=== PATIENT | female | born 1955 | race Caucasian/White ===

== ENCOUNTER → 2020-08-28 10:55 | Outpatient (CLI) | payer MEDICARE, BC, SELFPAY ==
[2020-08-28] MEDS: COVID-19 VACC #1, MRNA(MOD) 100 MCG/0.5 ML VIAL IM (11:04)
== END ==
PROVIDERS: Visit Provider Internal Medicine
DX: Z23 Encounter for immunization (principal)
CPT/HCPCS: 0011A; 91301

== ENCOUNTER → 2020-09-25 12:07 | Outpatient (CLI) | payer MEDICARE, BC, SELFPAY ==
[2020-09-25] MEDS: COVID-19 VACC #2, MRNA(MOD) 100 MCG/0.5 ML VIAL IM (12:16)
== END ==
PROVIDERS: Visit Provider Internal Medicine
DX: Z23 Encounter for immunization (principal)
CPT/HCPCS: 0012A; 91301

== ENCOUNTER → 2020-11-26 15:52 | Outpatient (CLI) | payer MEDICARE, BC, SELFPAY ==
--- NOTE | 2020-11-26 15:57 | DI.MG.S_ITS ---
BILATERAL DIGITAL SCREENING MAMMOGRAM 3D/2D WITH CAD: 11/26/2020 CLINICAL: Routine screening. Comparison is made to exams dated: 07/18/2017 mammogram, 04/13/2016 mammogram, 01/23/2015 mammogram, and 01/12/2015 mammogram - outside location. The tissue of both breasts is predominantly fatty. Current study was also evaluated with a Computer Aided Detection (CAD) system. No significant masses, calcifications, or other findings are seen in either breast. There has been no significant interval change. IMPRESSION: NEGATIVE There is no mammographic evidence of malignancy. A 1 year screening mammogram is recommended. This exam was interpreted at Station ID: [id number]. NOTE: For mammograms, a report in lay terms will be sent to the patient. Approximately 15% of breast malignancies will not be visualized mammographically. In the management of a palpable breast mass, a negative mammogram must not discourage biopsy of a clinically suspicious lesion. Electronically Signed By: Robert Arora M.D., jr/anay:11/26/2020 16:27:57 letter sent: Normal Exam ACR BI-RADS Category 1: Negative 3341F
== END ==
PROVIDERS: PCP Internal Medicine; Referring Provider Internal Medicine; Visit Provider Internal Medicine
DX: Z12.31 Encounter for screening mammogram for malignant neoplasm of breast (principal)
CPT/HCPCS: 77063; 77067

== ENCOUNTER → 2020-12-30 15:37 | Outpatient (CLI) | payer MEDICARE, BC, SELFPAY ==
--- NOTE | 2020-12-30 | DI.RAD.S_ITS ---
PROCEDURE: XR HIP W PEL IF DONE LT 2V INDICATIONS: LEFT HIP PAIN TECHNIQUE: AP pelvis with lateral view(s) of the left hip(s). COMPARISON: None. FINDINGS: Bones: No fractures or dislocations. Pelvic ring appears intact. No suspicious bony lesions. Right hip arthroplasty. Severe left hip joint space narrowing. Moderate left hip periarticular osteophyte formation. Soft tissues: The visualized bowel gas pattern is normal. No suspicious soft tissue calcifications. IMPRESSION: Moderate to severe left hip joint osteoarthritis. Dictated by: Jt San M.D. on 12/30/2020 at 17:06 Approved by: Jt San M.D. on 12/30/2020 at 17:06
== END ==
PROVIDERS: PCP Internal Medicine; Referring Provider Internal Medicine; Visit Provider Internal Medicine
DX: M25.552 Pain in left hip (principal)
CPT/HCPCS: 73502

== ENCOUNTER → 2021-03-19 12:11 | Outpatient (CLI) | payer MEDICARE, BC, SELFPAY ==
[2021-03-19 12:53] LABS: COVID19 -Nasal RAPID Negative (Negative)
== END ==
PROVIDERS: PCP Internal Medicine; Referring Provider Nurse Practitioner; Visit Provider Nurse Practitioner
DX: Z20.822 Contact with and (suspected) exposure to COVID-19 (principal); R05 Cough; R51.9 Headache, unspecified; R53.83 Other fatigue
CPT/HCPCS: 87635

== ENCOUNTER → 2021-07-21 13:15 | Outpatient (CLI) | payer MEDICARE, BC, SELFPAY ==
[2021-07-21 14:33] LABS: COVID19 -Nasal RAPID Negative (Negative)
== END ==
PROVIDERS: PCP Internal Medicine; Referring Provider Nurse Practitioner Family; Visit Provider Nurse Practitioner Family
DX: Z20.822 Contact with and (suspected) exposure to COVID-19 (principal)
CPT/HCPCS: 87635

== ENCOUNTER → 2021-11-29 15:41 | Outpatient (CLI) | payer MEDICARE, BC, SELFPAY ==
--- NOTE | 2021-11-29 | DI.MG.S_ITS ---
BILATERAL DIGITAL SCREENING MAMMOGRAM 3D/2D WITH CAD: 11/29/2021 CLINICAL: Routine screening. Comparison is made to exams dated: 11/26/2020 mammogram - [facility] and 07/18/2017 mammogram - outside location. The tissue of both breasts is heterogeneously dense. This may lower the sensitivity of mammography. Current study was also evaluated with a Computer Aided Detection (CAD) system. No significant masses, calcifications, or other findings are seen in either breast. There has been no significant interval change. IMPRESSION: NEGATIVE There is no mammographic evidence of malignancy. A 1 year screening mammogram is recommended. This exam was interpreted at Station ID: [id number]. NOTE: For mammograms, a report in lay terms will be sent to the patient. Approximately 15% of breast malignancies will not be visualized mammographically. In the management of a palpable breast mass, a negative mammogram must not discourage biopsy of a clinically suspicious lesion. Electronically Signed By: Chema silva/anay:11/30/2021 12:02:09 letter sent: Normal Exam ACR BI-RADS Category 1: Negative 3341F
== END ==
PROVIDERS: PCP Student in an Organized Health Care Education/Training Program; Referring Provider Student in an Organized Health Care Education/Training Program; Visit Provider Student in an Organized Health Care Education/Training Program
DX: Z12.31 Encounter for screening mammogram for malignant neoplasm of breast (principal)
CPT/HCPCS: 77063; 77067

== ENCOUNTER → 2022-05-20 12:26 | Outpatient (CLI) | payer MEDICARE, BC, SELFPAY ==
--- NOTE | 2022-05-20 | DI.RAD.S_ITS ---
PROCEDURE: XR ACUTE ABDOMEN SERIES INDICATIONS: diarrhea, microscopic colitis TECHNIQUE: One view chest and two views of the abdomen were acquired. COMPARISON: None. FINDINGS: Surgical changes and devices: Scattered surgical clips along the right paraspinous abdomen/pelvis soft tissues.. Chest: Lungs are clear. Heart size is normal. No pleural effusions. No pneumoperitoneum. Abdomen: Bowel gas pattern is normal. No suspicious calcifications. Visualized solid organ contours appear normal. Bones: No suspicious bony lesions. There is mild levoscoliosis centered at the L2-L3 level of the lumbosacral spine. IMPRESSION: No intestinal obstruction or perforation is seen. Several scattered surgical clips are seen along the right paraspinous portion of the abdomen/pelvis. Dictated by: Rm Phillips M.D. on 05/20/2022 at 13:12 Approved by: Rm Phillips M.D. on 05/20/2022 at 13:13
== END ==
PROVIDERS: PCP Student in an Organized Health Care Education/Training Program; Referring Provider Internal Medicine Gastroenterology; Visit Provider Internal Medicine Gastroenterology
DX: K52.839 Microscopic colitis, unspecified (principal); R19.7 Diarrhea, unspecified
CPT/HCPCS: 74022

== ENCOUNTER 2022-05-21 14:12 | Emergency (ER) | payer MEDICARE, BC, SELFPAY ==
[2022-05-21 14:25] VITALS: BP 148/81; PULSE 60; RESP 16; TEMP 36.8; O2SAT 97; BMI 25.0
--- NOTE | 2022-05-21 14:29 | ED_ITS ---
HPI - Abdominal Pain General Chief Complaint: Nausea/Vomiting/Diarrhea Stated Complaint: Sent from [facility], diarrhea, weakness Time Seen by Provider: 05/21/22 14:28 Source: patient and family Mode of arrival: Ambulatory History of Present Illness HPI narrative: 66-year-old female former smoker with known IBS managed by Dr. Sagastume presents with her from the walk-in clinic for evaluation of a few weeks of increasing generalized abdominal cramping, diarrhea and generalized feeling of being unwell. She is had complex GI diagnoses for almost 20 years and is previously been managed in [place] in his relatively new to this area. She is been seen once by GI at [facility] for a colonoscopy that was reported to be unremarkable and has seen Dr. Sagastume once. She is been told she has microscopic colitis but reports multiple evaluations since the initial diagnosis that would contradict this diagnosis. She states that she is been relatively pain-free for the past week but over the past few weeks she has gone from her normal 1 loose stool per day to at least 3 liquid if not watery stools. She denies recent antibiotic use, dietary change, travel or exposure to ill persons. She denies any blood in her stool. She is had no fever or chills. She denies any chest pain or shortness of breath. Related Data Home Medications Medication Instructions Recorded Confirmed escitalopram oxalate 10 mg tablet 15 mg PO DAILY 03/19/21 05/21/22 bismuth subsalicylate 525 mg/15 mL 525 mg PO DAILY 05/21/22 05/21/22 oral suspension loperamide 2 mg capsule 2 mg PO DAILY 05/21/22 05/21/22 wheat dextrin 3 gram/3.5 gram oral 1 packet PO DAILY 05/21/22 05/21/22 powder (Best Fiber) Previous Rx's Medication Instructions Recorded dicyclomine 20 mg tablet 20 mg PO TID PRN abdominal 05/21/22 discomfort #20 tabs Allergies Allergy/AdvReac Type Severity Reaction Status Date / Time tramadol AdvReac Mild Mentally Verified 05/21/22 14:29 unstable Review of Systems Review of Systems Narrative: GENERAL: Denies chills, fatigue, malaise, fever, sweats. HEENT: Denies sinus pain, ear pain, sore throat, difficulty swallowing, dizziness. RESPIRATORY: Denies dyspnea, cough, wheezing, hemoptysis, sputum. CARDIOVASCULAR: Denies chest pain, palpitations, orthopnea, edema, GASTROINTESTINAL: See HPI : Denies dysuria, frequency, incontinence, hematuria, urinary retention. MUSCULOSKELETAL: denies weakness, joint pain, or bony pain SKIN: Denies rash, skin lesions, or other NEUROLOGIC: Denies weakness, headache, numbness, change in speech, confusion, seizures, incoordination. PSYCHIATRIC: No concerning psychosocial issues. 12 point review of systems is negative except for those stated above Patient History Social History Smoking Status: Former smoker Smoking Status: Former smoker alcohol intake frequency: 3 or more drinks per day Alcohol type: wine Substance Use Type: does not use Exam Narrative Exam Narrative: GENERAL: [66] year old patient appears stated age. Well-developed patient, in mild distress. HEAD: Atraumatic. Normocephalic. EYES: Pupils equal round and reactive. Extraocular motions intact. No scleral icterus. No injection or drainage. ENT: Nose without bleeding, purulent drainage. Throat without erythema, tonsillar hypertrophy or exudate. Airway patent. NECK: Trachea midline. Non tender CARDIOVASCULAR: Regular rate and rhythm without murmurs, gallops, or rubs. RESPIRATORY: Clear to auscultation. Breath sounds equal bilaterally. No wheezes, rales, or rhonchi. GASTROINTESTINAL: Abdomen soft, non-tender, nondistended. EXTREMITIES: No edema or joint tenderness. BACK: Nontender without deformity or crepitance. No flank tenderness. NEURO: AOx3. SKIN: No rash or erythema of visible areas Initial Vital Signs Initial Vital Signs: Vital Signs Temperature 98.2 F 05/21/22 14:25 Pulse Rate 60 05/21/22 14:25 Respiratory Rate 16 05/21/22 14:25 Blood Pressure 148/81 H 05/21/22 14:25 Pulse Oximetry 97 05/21/22 14:25 Oxygen Delivery Method 05/21/22 14:25 Course Orders Ordered: Discontinued Medications Sodium Chloride (Normal Saline 0.9%) 1,000 mls @ 1,000 mls/hr IV BOLUS ONE Stop: 05/21/22 15:29 Last Infusion: 05/21/22 16:12 Dose: 0 mls/hr Documented By: Admin: 05/21/22 15:25 Dose: 1,000 mls/hr Documented By: HOLLI Vital Signs Vital signs: Vital Signs - 8 hr 05/21/22 14:25 Temperature 98.2 F Pulse Rate 60 Respiratory Rate 16 Blood Pressure 148/81 H Pulse Oximetry 97 Oxygen Delivery Method Room Air MDM - Abdominal Pain Lab Data Result diagrams: 05/21/22 14:40 05/21/22 14:40 Labs: Lab Results 05/21/22 05/21/22 05/21/22 Range/Units 14:40 14:40 14:40 WBC 4.5 (4.5-11.0) X10^3/uL RBC 4.36 (4.0-5.2) X10^6/uL Hgb 14.0 (12.0-16.0) g/dL Hct 41.1 (36-46) % MCV 94.1 (80-100) fL MCH 32.1 (26-34) PG MCHC 34.1 (30-36) % RDW 12.8 (11.6-14.8) % Plt Count 270 (150-400) X10^3/uL Neut % (Auto) 56.7 (50-75) % Lymph % (Auto) 27.2 (25-40) % Kern % (Auto) 9.8 (3-14) % Eos % (Auto) 5.1 H (2-4) % Baso % (Auto) 1.2 (0-2) % Neut # (Auto) 2600 (9717-0114) /uL Lymph # (Auto) 1200 (7237-3942) /uL Kern # (Auto) 400 (0-900) /uL Eos # (Auto) 200 (0-450) /uL Baso # (Auto) 100 (0-100) /uL Sodium 137 (137-145) mmol/L Potassium 4.6 (3.4-5.1) mmol/L Chloride 99 (98-107) mmol/L Carbon Dioxide 29 (22-32) mmol/L BUN 8 (7-17) mg/dL Creatinine 0.52 (0.52-1.04) mg/dL Estimated GFR > 60 (>60) mL/min BUN/Creatinine Ratio 15.4 (6-22) Glucose 96 (80-110) mg/dL Calcium 9.4 (8.4-10.2) mg/dL Total Bilirubin 0.7 (0.2-1.3) mg/dL AST 32 (14-36) IU/L ALT 17 (<35) IU/L Alkaline Phosphatase 82 (38-126) U/L Total Protein 7.8 (6.3-8.2) g/dL Albumin 4.7 (3.5-5.0) g/dL Globulin 3.1 (1.7-4.1) g/dL Albumin/Globulin Ratio 1.5 (1.0-2.8) Lipase 70 (23-300) U/L Point of care testing: Urine Dip Bedside Urine Glucose Negative Bedside Urine Bilirubin - Negative Bedside Urine Ketone - Negative Urine Specific [place] 1.01 Bedside Urine Occult Blood - Negative Bedside Urine pH 6 Bedside Urine Protein - Negative Bedside Urine Urobilinogen - Negative Bedside Urine Nitrite - Negative Bedside Urine Leukocytes - Negative Esterase Imaging Data CT scan - abdomen/pelvis: Radiologist's Impression: Close Abdomen/Pelvis CT (Signed) Susan Cruz - 05/21/22 Launch?[place] [address] CT Scan Report Signed Patient: Veronique Gilmore MR#: [id number] : 1955 Acct:[id number] Age/Sex: 66 / F Date of Service: 05/21/22 Loc: Accession Number: [id number] ?? Procedure: CT abdomen pelvis w con Ordering Provider: Marcio Man D.O. PROCEDURE:? CT ABDOMEN PELVIS W CON ? INDICATIONS:? severe abdominal pain ? TECHNIQUE:? After the administration of intravenous contrast, axial sections acquired from the lung bases to the pubic symphysis.? Coronal and sagittal reformats were performed.? For radiation dose reduction, the following was used:? automated exposure control, adjustment of mA and/or kV according to patient size.? ? COMPARISON:? None. ? FINDINGS:? Image quality:? Excellent.? ? Lung bases:? Clear lung bases. Heart:? Mild cardiomegaly. ? ABDOMEN: Liver:? No masses Gallbladder:? Normal wall thickness. Biliary ducts:? Nondilated. Pancreas:? Normal. Spleen:? Normal size. Adrenal Glands:? No nodules. Kidneys and Ureters:? Normal enhancement.? No hydronephrosis or hydroureter.? No calcifications.? Subcentimeter cortical renal cysts. .? ? ? Stomach and Bowel:? Stomach, small bowel loops, and colon are unremarkable.? Normal appendix.? No significant retained stool.? There is liquid stool with air-fluid levels in the proximal colon.? No suspicious wall thickening or pericolonic inflammation. Peritoneum:? No abnormal intraperitoneal fluid.? No free air.? ? Ventral Wall: Tiny fat containing umbilical hernia.? Abdominal Nodes:? No retroperitoneal or mesenteric adenopathy by size criteria.? Vessels:? Aorta and inferior vena cava are normal in size.? ? PELVIS: Pelvic Organs:? Retroverted uterus with engorged periuterine vasculature and prominent gonadal veins.? No suspicious adnexal masses. Bladder:? Normal. Pelvic Nodes:? No adenopathy. Miscellaneous: No hernias are seen. ? ? ? Bones:? Right hip arthroplasty.? Degenerative disc change at L4-5. ? ? IMPRESSION:? ? 1. No CT evidence of acute process. ? 2. Liquid stool in the proximal colon may reflect enteritis.? ? ? Dictated by: Susan Cruz M.D. on 05/21/2022 at 14:54 ? ? Approved by: Susan Cruz M.D. on 05/21/2022 at 15:01 ? MDM Narrative Medical decision making narrative: Call to discuss with on-call GI (Dr. Fisher) we have discussed the patient's history and physical exam as well as labs and lack of significant findings on C T. He recommends continuing to attempt to get stool for possible C diff, Bentyl for abdominal discomfort and FODMAP diet Discharge Plan Departure Patient Disposition: Home Clinical Impression: Diarrhea, Abdominal pain Instructions: DI for Abdominal Pain-Adult Activity Restrictions/Additional Instructions: *You have been diagnosed with [ diarrhea and episodic abdominal pain. As we discussed your history and physical exam are reassuring in the labs nor CT show significant findings. I have spoken with on-call gastroenterology who recommends a prescription for Bentyl which has been sent to your pharmacy and FODMAP diet] *What to do: *Please continue to take your regular medications as directed. [x ] New medication prescriptions sent to your pharmacy: [ [facility]] [ ] New medication written as a paper prescription [ ] No new medications given *Please follow up with your primary care provider in 2-3 days, call for an appointment. Let them know you were seen in the Emergency Department and that we ask that you be seen in follow up. We will electronically transmit a record of today's note if your PCP is in our system *Per Dr. Fisher - try a FODMAP diet which would have you AVOID -diet, weight based products, beans and lentils, are chokes, asparagus, onions, apples, cherries, pears and peaches instead try to CONSUME the following instead: Eggs and meat, almond milk, certain cheeses such as Brie,cheddar, feta, and grains like rice, Moises Mikael and Schuyler *Return to Emergency Department if you should have any new, worsening or concerning symptoms, such as [fever greater than 101 F, shaking chills, worsening pain, persistent vomiting or other bothersome symptoms] Prescriptions: New dicyclomine 20 mg tablet 20 mg PO TID PRN (Reason: abdominal discomfort) Qty: 20 0RF No Action escitalopram oxalate 10 mg tablet 15 mg PO DAILY loperamide [Imodium] 2 mg Capsule 2 mg PO DAILY Pepto-Bismol 525 mg/15 mL Suspension 525 mg PO DAILY Rx Instructions: do not exceed 8 doses in a 24 hour period Best Fiber 3 gram/3.5 gram Powder 1 packet PO DAILY Rx Instructions: mix into at least 4 oz water or juice before administering Referrals: Shira Reyna MD [Primary Care Provider] - Blake Fisher MD [Non-Staff] - Visit Report Forms: Patient Portal/API
--- NOTE | 2022-05-21 14:31 | DI.CT.S_ITS ---
PROCEDURE: CT ABDOMEN PELVIS W CON INDICATIONS: severe abdominal pain TECHNIQUE: After the administration of intravenous contrast, axial sections acquired from the lung bases to the pubic symphysis. Coronal and sagittal reformats were performed. For radiation dose reduction, the following was used: automated exposure control, adjustment of mA and/or kV according to patient size. COMPARISON: None. FINDINGS: Image quality: Excellent. Lung bases: Clear lung bases. Heart: Mild cardiomegaly. ABDOMEN: Liver: No masses Gallbladder: Normal wall thickness. Biliary ducts: Nondilated. Pancreas: Normal. Spleen: Normal size. Adrenal Glands: No nodules. Kidneys and Ureters: Normal enhancement. No hydronephrosis or hydroureter. No calcifications. Subcentimeter cortical renal cysts. . Stomach and Bowel: Stomach, small bowel loops, and colon are unremarkable. Normal appendix. No significant retained stool. There is liquid stool with air-fluid levels in the proximal colon. No suspicious wall thickening or pericolonic inflammation. Peritoneum: No abnormal intraperitoneal fluid. No free air. Ventral Wall: Tiny fat containing umbilical hernia. Abdominal Nodes: No retroperitoneal or mesenteric adenopathy by size criteria. Vessels: Aorta and inferior vena cava are normal in size. PELVIS: Pelvic Organs: Retroverted uterus with engorged periuterine vasculature and prominent gonadal veins. No suspicious adnexal masses. Bladder: Normal. Pelvic Nodes: No adenopathy. Miscellaneous: No hernias are seen. Bones: Right hip arthroplasty. Degenerative disc change at L4-5. IMPRESSION: 1. No CT evidence of acute process. 2. Liquid stool in the proximal colon may reflect enteritis. Dictated by: Susan Cruz M.D. on 05/21/2022 at 14:54 Approved by: Susan Cruz M.D. on 05/21/2022 at 15:01
[2022-05-21 14:51] LABS: Add Manual Diff / Slide Review NO; Basophils Absolute Auto 100 /uL (0-100); Basophils Percent Auto 1.2 % (0-2); Eosinophils Absolute Auto 200 /uL (0-450); Eosinophils Percent Auto 5.1 % (2-4); Hematocrit 41.1 % (36-46); Lymphocytes Absolute Auto 1200 /uL (1100-4500); Lymphocytes Percent Auto 27.2 % (25-40); Mean Corpuscular HGB Conc 34.1 % (30-36); Mean Corpuscular Hemoglobin 32.1 PG (26-34); Mean Corpuscular Volume 94.1 fL (80-100); Monocytes Absolute Auto 400 /uL (0-900); Monocytes Percent Auto 9.8 % (3-14); Neutrophils Absolute Auto 2600 /uL (1500-7000); Neutrophils Percent Auto 56.7 % (50-75); Platelet Count 270 X10^3/uL (150-400); Red Blood Cell Count 4.36 X10^6/uL (4.0-5.2); Red Cell Distribution Width 12.8 % (11.6-14.8); White Blood Cell Count 4.5 X10^3/uL (4.5-11.0)
[2022-05-21 15:04] LABS: Alanine Aminotransferase 17 IU/L (<35); Albumin 4.7 g/dL (3.5-5.0); Albumin Globulin Ratio 1.5 (1.0-2.8); Alkaline Phosphatase 82 U/L (38-126); Aspartate Aminotransferase 32 IU/L (14-36); BUN Creatinine Ratio 15.4 (6-22); Bilirubin Total 0.7 mg/dL (0.2-1.3); Blood Urea Nitrogen 8 mg/dL (7-17); Calcium 9.4 mg/dL (8.4-10.2); Carbon Dioxide 29 mmol/L (22-32); Chloride 99 mmol/L (98-107); Estimated Glomerular Filt Rate > 60 mL/min (>60); Globulin 3.1 g/dL (1.7-4.1); Glucose 96 mg/dL (80-110); HEMOLYSIS 21 (0-50); Potassium 4.6 mmol/L (3.4-5.1); Sodium 137 mmol/L (137-145); Total Protein 7.8 g/dL (6.3-8.2)
[2022-05-21 15:05] LABS: Lipase 70 U/L (23-300)
[2022-05-21] MEDS: SODIUM CHLORIDE 0.9% 1,000 ML 1000 ML IV (15:25)
--- NOTE | 2022-05-21 17:52 | PC.NURSE ---
pt has been trying to get help with a chronic condition, having diarrhea on and off for a many yrs. having a flare and is concerned. she is does have a gastro dr.
[2022-05-21 18:17] VITALS: BP 137/64; PULSE 74; RESP 18; O2SAT 97
== END 2022-05-21 18:20 | disposition home or self-care (01) ==
PROVIDERS: Emergency Provider Emergency Medicine; PCP Student in an Organized Health Care Education/Training Program
DX: R19.7 Diarrhea, unspecified (principal); R10.84 Generalized abdominal pain
CPT/HCPCS: 36415; 74177; 80053; 81003; 83690; 85025; 96360; 99284; Q9967

== ENCOUNTER → 2022-09-28 10:22 | Outpatient (CLI) | payer MEDICARE, BC, SELFPAY ==
--- NOTE | 2022-09-28 | DI.RAD.S_ITS ---
PROCEDURE: FL SMALL BOWEL FOLLOW THROUGH INDICATIONS: Diarrhea, unspecified COMPARISON: [facility], CT, CT ABDOMEN PELVIS W CON, 05/21/2022, 15:01. 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 Bilateral hip arthroplasty hardware present. Small bowel: Contrast is visualized within the proximal colon at 2.5 hours after ingestion, but may have been present as early as 1 hour after ingestion. No evidence of mechanical small bowel obstruction. Small bowel fold pattern appears unremarkable. No definite fixed narrowing/stricture identified. IMPRESSION: No definite or significant abnormality of small bowel transit time. Dictated by: Chema Patel M.D. on 09/28/2022 at 15:09 Approved by: Chema Patel M.D. on 09/28/2022 at 15:17
[2022-09-28 14:41] LABS: Add Manual Diff / Slide Review NO; Basophils Absolute Auto 0 /uL (0-100); Eosinophils Absolute Auto 100 /uL (0-450); Eosinophils Percent Auto 3.6 % (2-4); Hematocrit 38.2 % (36-46); Hemoglobin 13.2 g/dL (12.0-16.0); Lymphocytes Absolute Auto 1200 /uL (1100-4500); Lymphocytes Percent Auto 31.8 % (25-40); Mean Corpuscular HGB Conc 34.6 % (30-36); Mean Corpuscular Hemoglobin 31.8 PG (26-34); Mean Corpuscular Volume 92.2 fL (80-100); Monocytes Absolute Auto 400 /uL (0-900); Monocytes Percent Auto 10.6 % (3-14); Neutrophils Absolute Auto 2000 /uL (1500-7000); Platelet Count 229 X10^3/uL (150-400); Red Blood Cell Count 4.15 X10^6/uL (4.0-5.2); White Blood Cell Count 3.8 X10^3/uL (4.5-11.0)
[2022-09-28 15:32] LABS: Alanine Aminotransferase 15 IU/L (<35); Albumin 4.2 g/dL (3.5-5.0); Albumin Globulin Ratio 1.5 (1.0-2.8); Alkaline Phosphatase 74 U/L (38-126); Aspartate Aminotransferase 28 IU/L (14-36); Bilirubin Total 0.6 mg/dL (0.2-1.3); Blood Urea Nitrogen 10 mg/dL (7-17); Carbon Dioxide 29 mmol/L (22-32); Chloride 99 mmol/L (98-107); Estimated Glomerular Filt Rate > 60 mL/min (>60); Globulin 2.8 g/dL (1.7-4.1); Glucose 90 mg/dL (80-110); HEMOLYSIS < 15 (0-50); Potassium 4.2 mmol/L (3.4-5.1); Sodium 136 mmol/L (137-145)
[2022-09-28 15:43] LABS: Free T4, Direct Thyroxine 0.92 ng/dL (0.78-2.19)
== END ==
PROVIDERS: PCP Student in an Organized Health Care Education/Training Program; Referring Provider Internal Medicine Gastroenterology; Visit Provider Internal Medicine Gastroenterology
DX: R19.7 Diarrhea, unspecified (principal)
CPT/HCPCS: 36415; 74250; 80053; 84436; 84439; 84443; 84586; 85025; 86231; 86258; 86364

== ENCOUNTER → 2022-12-05 10:50 | Outpatient (CLI) | payer MEDICARE, BC, SELFPAY ==
--- NOTE | 2022-12-05 | DI.MG.S_ITS ---
BILATERAL DIGITAL SCREENING MAMMOGRAM 3D/2D WITH CAD: 12/05/2022 CLINICAL: Routine screening. Family history of breast cancer. Comparison is made to exams dated: 11/29/2021 mammogram, 11/26/2020 mammogram - [facility], and 07/18/2017 mammogram - outside location. Both breasts are heterogeneously dense, which may obscure small masses (category c / 51-75% glandular tissue). Current study was also evaluated with a Computer Aided Detection (CAD) system. No significant masses, calcifications, or other findings are seen in either breast. There has been no significant interval change. IMPRESSION: NEGATIVE There is no mammographic evidence of malignancy. A 1 year screening mammogram is recommended. Based on the Tyrer Cuzick model (a risk assessment model) the patient's lifetime risk is 18.4% and her 10 year risk is 10.5%. According to the ACR, ACS, and NCCN guidelines, an annual breast MRI exam along with mammogram is recommended if the patient's lifetime risk is 20% or greater. This exam was interpreted at Station ID: [id number]. NOTE: For mammograms, a report in lay terms will be sent to the patient. Approximately 15% of breast malignancies will not be visualized mammographically. In the management of a palpable breast mass, a negative mammogram must not discourage biopsy of a clinically suspicious lesion. Electronically Signed By: Hemal baker/anay:12/05/2022 12:12:09 letter sent: Normal Exam ACR BI-RADS Category 1: Negative 3341F
== END ==
PROVIDERS: PCP Registered Nurse; Referring Provider Registered Nurse; Visit Provider Registered Nurse
DX: Z12.31 Encounter for screening mammogram for malignant neoplasm of breast (principal); Z80.3 Family history of malignant neoplasm of breast
CPT/HCPCS: 77063; 77067

== ENCOUNTER → 2023-01-04 11:46 | Outpatient (CLI) | payer MEDICARE, BC, SELFPAY ==
--- NOTE | 2023-01-04 | DI.RAD.S_ITS ---
Bone Density Report Name: MARTHA GERMAIN Age: 67 Sex: Female Ethnicity: White Date of : 1955 Indication: postmenopausal; screening for osteoporosis; Referring Provider: VAMSI MURILLO Study: Bone densitometry was performed. Exam Date: January 04, 2023 Accession number: [id number] Bone Density: Region BMD T-score Z-score Classification AP Spine(L1-L4) 0.926 -1.1 0.9 Osteopenia Total Forearm (Left) 0.556 -0.4 1.4 Normal 1/3 Forearm (Left) 0.695 0.0 2.0 Normal UD Forearm (Left) 0.371 -1.2 0.1 Osteopenia World Health Organization criteria for BMD impression classify patients as: Normal (T-score at or above -1.0), Osteopenia (T-score between -1.0 and -2.5), or Osteoporosis (T-score at or below -2.5). Impression: The patient has low bone mass, based on the Total Spine T-score. Discussion: BONE DENSITY IS LOW AT ONE OR MORE SKELETAL SITES. This patient's lowest T-score is low at one or more skeletal sites. It meets the World Health Organization's (WHO) criteria for low bone mass (T-score between -1.0 and -2.5). The patient's 10-year risk of fracture as calculated by FRAX is less than the threshold where pharmacological therapy is recommended by the National Osteoporosis Foundation (NOF). However, all treatment decisions require clinical judgment and consideration of individual patient factors, including patient preferences, comorbidities, previous drug use, risk factors not captured in the FRAX model (e.g., frailty, falls, vitamin D deficiency, increased bone turnover, interval significant decline in bone density) and possible under or overestimation of fracture risk by FRAX. The patient should follow a healthful lifestyle (good nutrition with adequate calcium and vitamin D, and appropriate weight-bearing exercise). Follow-Up: Consider repeating this study in 2 to 3 years to reassess this patient's status, or sooner if there is some new clinical indication. Reported by: SHARA HERNANDEZ MD on 01/04/2023 12:11:00 PM.
== END ==
PROVIDERS: PCP Registered Nurse; Referring Provider Registered Nurse; Visit Provider Registered Nurse
DX: Z78.0 Asymptomatic menopausal state (principal); Z13.820 Encounter for screening for osteoporosis; M85.88 Other specified disorders of bone density and structure, other site
CPT/HCPCS: 77080; 77081

== ENCOUNTER → 2023-09-18 10:31 | Outpatient (CLI) | payer MEDICARE, BC, SELFPAY ==
--- NOTE | 2023-09-18 10:33 | DI.ECHO.S_ITS ---
[facility] +---------+ : : [address] : [place] [address] : : : : [id number] : : : : Phone: [phone]---------+ Echocardiogram Report + + :Name: MARTHA GERMAIN Study Date: 09/18/2023 Height: 67.5 in: :[facility] ReadingLocation: Weight: 160 lb : : Gender: Female BSA: 1.9 m2 : :: 1955 Age: 68 yrs BP: 127/82 mmHg: :Reason For Study: MURMUR : :Ordering Physician: CHIDI, : :VAMSI Performed By: Nusrat Singh : :Referring: VAMSI MURILLO : + + Interpretation Summary The ejection fraction is estimated to be 60-65%. Diastolic parameters suggest probable normal left ventricular diastolic function and normal filling pressures. The right ventricle is normal in size and function. A patent foramen ovale is suspected. There is mild aortic valve sclerosis. Pulmonary artery pressures cannot be estimated because of the lack of a measurable TR jet velocity but the IVC suggests a CVP of around 3 mmHg. Procedure: A two-dimensional transthoracic echocardiogram with color flow and Doppler was performed. The study quality was technically adequate. There is no prior echocardiogram noted for this patient. The patient was in sinus rhythm with heart rates between 63-75 bpm during the exam. Left Ventricle: The left ventricle is normal in size and wall thickness. The ejection fraction is estimated to be 60-65%. Diastolic parameters suggest probable normal left ventricular diastolic function and normal filling pressures. Right Ventricle: The right ventricle is normal in size and function. Atria: The left atrial size is normal. Right atrial size is normal. The atrial septum is aneurysmal. A patent foramen ovale is suspected. Mitral Valve: The mitral valve is normal in structure and function. There is mild mitral annular calcification. There is trace mitral regurgitation. Aortic Valve: There is mild aortic valve sclerosis. The peak aortic velocity is 1.9 m/sec. The aortic valve mean gradient is 8.6 mmHg. There is no hemodynamically significant valvular aortic stenosis. No aortic regurgitation is present. Tricuspid Valve: The tricuspid valve is normal in structure and function. There is trace tricuspid regurgitation. Pulmonary artery pressures cannot be estimated because of the lack of a measurable TR jet velocity but the IVC suggests a CVP of around 3 mmHg. Pulmonic Valve: The pulmonic valve is not well seen, but is grossly normal. There is no pulmonic valvular regurgitation. Great Vessels: The aortic root is normal size. The dimensions of the ascending aorta are normal. The IVC is of normal diameter and collapses greater than 50% with a sniff. This suggests a low right atrial pressure of 3 mm Hg. Pericardium/ Pleura There is no pericardial effusion. There is no pleural effusion. MMode/2D Measurements & Calculations LVIDd: 4.7 cm LVOT diam: 2.1 cm LVIDs: 3.0 cm Ao root diam: 2.8 cm FS: 36.7 % asc Aorta Diam: 3.7 cm EPSS: 0.43 cm Ao Arch Diam (Prox Trans): 2.8 cm IVSd: 0.88 cm LVPWd: 0.85 cm LV colon. diameter/BSA (cm/m^2): 2.5 LV sys. diameter/BSA (cm/m^2): 1.6 LA A2 area: 21.5 cm2 RA long axis: 5.2 cm LA A4 area: 16.8 cm2 RA area: 16.5 cm2 LA length (vol): 5.6 cm RA vol: 43.9 ml LA vol: 55.2 ml RA : 23.7 ml/m2 LA vol index: 29.8 ml/m2 IVC diam: 1.7 cm RVD1 (basal): 3.7 cm RVD2 (mid): 2.8 cm TAPSE: 2.4 cm Doppler Measurements & Calculations Ao V2 max: 192.2 cm/sec LVOT Max Marshal: 121.7 cm/sec Ao V2 mean: 132.9 cm/sec LV V1 max P.9 mmHg Ao max P.8 mmHg LV V1 VTI: 26.8 cm Ao mean P.6 mmHg JOSH(I,D): 2.2 cm2 Ao V2 VTI: 42.0 cm JOSH(V,D): 2.2 cm2 sev ratio: 0.64 JOSH indexed to BSA (cm^2/m^2): 1.2 MV E max marshal: 77.1 cm/sec PA V2 max: 92.4 cm/sec MV A max marshal: 86.6 cm/sec PA V2 mean: 67.1 cm/sec MV E/A: 0.89 PA mean P.9 mmHg Med Peak E' Marshal: 9.3 cm/sec PA pr(Accel): 24.2 mmHg E/E' med: 8.3 Lat Peak E' Marshal: 10.5 cm/sec E/E' lat: 7.4 E/e' average: 7.8 MV dec time: 0.24 sec [facility] 92.3 ml Reading Physician:05:11 PM
== END ==
LOC: ECHO 10:32
PROVIDERS: PCP Registered Nurse; Referring Provider Registered Nurse; Visit Provider Registered Nurse
DX: I34.81 Nonrheumatic mitral (valve) annulus calcification (principal); I35.8 Other nonrheumatic aortic valve disorders; R01.1 Cardiac murmur, unspecified
CPT/HCPCS: 93306

== ENCOUNTER → 2023-12-27 12:41 | Outpatient (CLI) | payer MEDICARE, BC, SELFPAY ==
--- NOTE | 2023-12-27 12:43 | DI.MG.S_ITS ---
BILATERAL DIGITAL SCREENING MAMMOGRAM 3D/2D WITH CAD: 12/27/2023 CLINICAL: Routine screening. Family history of breast cancer. Comparison is made to exams dated: 12/05/2022 mammogram, 11/29/2021 mammogram, and 11/26/2020 mammogram - [facility]. Both breasts are heterogeneously dense, which may obscure small masses (category c / 51-75% glandular tissue). Current study was also evaluated with a Computer Aided Detection (CAD) system. No significant masses, calcifications, or other findings are seen in either breast. There has been no significant interval change. IMPRESSION: NEGATIVE There is no mammographic evidence of malignancy. A 1 year screening mammogram is recommended. Based on the Tyrer Cuzick model (a risk assessment model) the patient's lifetime risk is 17.5% and her 10 year risk is 10.6%. According to the ACR, ACS, and NCCN guidelines, an annual breast MRI exam along with mammogram is recommended if the patient's lifetime risk is 20% or greater. This exam was interpreted at Station ID: [id number]. NOTE: For mammograms, a report in lay terms will be sent to the patient. Approximately 15% of breast malignancies will not be visualized mammographically. In the management of a palpable breast mass, a negative mammogram must not discourage biopsy of a clinically suspicious lesion. Electronically Signed By: Eli ferrari/anay:12/27/2023 14:11:27 letter sent: Normal Exam ACR BI-RADS Category 1: Negative 3341F
== END ==
PROVIDERS: PCP Registered Nurse; Referring Provider Registered Nurse; Visit Provider Registered Nurse
DX: Z12.31 Encounter for screening mammogram for malignant neoplasm of breast (principal); Z80.3 Family history of malignant neoplasm of breast; R92.333 Mammographic heterogeneous density, bilateral breasts
CPT/HCPCS: 77063; 77067

== ENCOUNTER → 2025-01-28 14:43 | Outpatient (CLI) | payer MEDICARE, BC, SELFPAY ==
--- NOTE | 2025-01-28 14:45 | DI.MG.S_ITS ---
MM screening mammo BI: 01/28/2025. BI-RADS: 1 CLINICAL: 69-year old female for bilateral screening mammogram. Tyrer-Cuzick lifetime risk of 13.8%. Current reported family history of breast cancer: sister. The patient is status-post reduction mammoplasty. PRIOR EXAMS 12/27/2023, 12/05/2022, 11/29/2021, 11/26/2020. MAMMOGRAPHY TECHNIQUE: 2D and 3D (tomosynthesis) digital mammographic views obtained, with additional images as needed for full coverage. Current study was also evaluated with a Computer Aided Detection (CAD) system. DENSITY C. The breasts are heterogeneously dense, which may obscure small masses. MAMMOGRAPHY FINDINGS Bilateral: No suspicious mass, asymmetry, microcalcification, or other abnormality seen. No significant change from comparison. IMPRESSION: * No evidence of malignancy. RECOMMENDATIONS Bilateral * Annual screening mammography. OVERALL ASSESSMENT CATEGORY BI-RADS-1: Negative. The [employer] recommends annual screening mammography beginning at age 40 for women with average risk of breast cancer. PRELIMINARILY ELECTRONICALLY SIGNED: Chema Palacios M.D. on 01/29/2025 at 10:17:11 AM PT ELECTRONICALLY SIGNED: Chema Palacios M.D. on 01/29/2025 at 10:17:26 AM PT Interpreting Station ID: [id number]
== END ==
PROVIDERS: PCP Registered Nurse; Referring Provider Registered Nurse; Visit Provider Registered Nurse
DX: Z12.31 Encounter for screening mammogram for malignant neoplasm of breast (principal); Z80.3 Family history of malignant neoplasm of breast; R92.333 Mammographic heterogeneous density, bilateral breasts
CPT/HCPCS: 77063; 77067